=== PATIENT | male | born 1975 | race African-American/Black ===

== ENCOUNTER 2019-05-26 18:31 | Emergency (ER) | payer MEDICAID, OTHER ==
[~2019-05-26] VITALS: Ht 172.7 cm; Wt 75.0 kg
[2019-05-26 19:19] VITALS: BP 155/92
== END 2019-05-26 21:20 | disposition left against medical advice (07) ==
LOC: ER 18:31
DX: S81.852A Open bite, left lower leg, initial encounter (principal); S81.851A Open bite, right lower leg, initial encounter; W54.0XXA Bitten by dog, initial encounter; Y93.9 Activity, unspecified; Y92.9 Unspecified place or not applicable
CPT/HCPCS: 99281